=== PATIENT | female | born 1955 | race Caucasian/White ===

== ENCOUNTER → 2016-11-16 | Outpatient (CLI) | payer BC ==
[~2016-11-16] MED LIST: ACET-1138 PO; CALC1CHW57 PO; HYDR25TA4 PO; MULT-506 PO; ONDA8TAB6 PO; ULT50X PO; XRL10 PO
[2016-11-16 13:02] LABS: BASO % 0.7 %; BASO ABS # 0.04 K/uL (0-0.2); COMPLETE YES; EOS % 6.8 %; HEMATOCRIT 41.2 % (37-47); LYMPH % 22.1 %; MEAN CELL VOLUME 86.9 fL (80-100); MEAN CORPUSCULAR HEMOGLOBIN 29.1 pg (25-34); MEAN CORPUSCULAR HGB CONC 33.5 g/dl (32-36); MEAN PLATELET VOLUME 9.5 fL (7.4-10.4); MONO % 8.3 %; NEUT % 62.1 %; PLATELET COUNT 323 K/uL (130-400); RED BLOOD COUNT 4.74 M/uL (4.2-5.4); WHITE BLOOD COUNT 5.42 K/uL (4.8-10.8)
[2016-11-16 14:28] LABS: ALT/SGPT 16 U/L (12-78); AST/SGOT 11 U/L (15-37); BLOOD UREA NITROGEN 11 mg/dl (7-18); BUN/CREATININE RATIO 15.5 (10-20); CARBON DIOXIDE 27 mmol/L (21-32); CHLORIDE 104 mmol/L (98-107); GLUCOSE 87 mg/dl (70-99); POTASSIUM 3.7 mmol/L (3.5-5.1); SODIUM 141 mmol/L (136-145)
[2016-11-16 14:32] LABS: ALKALINE PHOSPHATASE 84 U/L (45-117); CHOLESTEROL 158 mg/dl (0-200); CHOLESTEROL/HDL RATIO 2.7; HDL CHOLESTEROL 58 mg/dl; LDL CHOLESTEROL CALCULATED 87 mg/dl; TRIGLYCERIDES 67 mg/dl (0-150); VERY LOW DENSITY LIPOPROT CALC 13 mg/dl
== END | disposition home or self-care (01) ==
LOC: C.LABMFLN 11:17
PROVIDERS: ATTEND Family Medicine
DX: I10 Essential (primary) hypertension (principal); E78.5 Hyperlipidemia, unspecified

== ENCOUNTER → 2017-05-17 | Outpatient (CLI) | payer BC ==
[~2017-05-17] MED LIST changes: +ACET-24 PO; +NCY50 PO
[2017-05-17 13:54] LABS: THYROID STIMULATING HORMONE 2.41 uIu/ml (0.300-4.500)
== END | disposition home or self-care (01) ==
LOC: C.LABMFLN 08:21
PROVIDERS: ATTEND Family Medicine
DX: I10 Essential (primary) hypertension (principal)

== ENCOUNTER → 2017-05-30 | Outpatient (CLI) | payer BC ==
--- NOTE | 2017-05-31 13:48 | MAMMOGRAPHY REPORT ---
BILATERAL DIGITAL SCREENING MAMMOGRAM TOMOSYNTHESIS WITH CAD: 05/30/2017 CLINICAL HISTORY: Routine screening. Patient has no complaints. TECHNIQUE: Breast tomosynthesis in addition to standard 2D mammography was performed. Current study was also evaluated with a Computer Aided Detection (CAD) system. COMPARISON: Comparison is made to exams dated: 05/25/2016 mammogram, 05/20/2015 mammogram, 05/14/2014 m ammogram - [facility], 04/12/2013 mammogram, 04/05/2011 mammogram, and 02/26/2010 mammo gram. BREAST COMPOSITION: There are scattered areas of fibroglandular density in both breasts. FINDINGS: There are a few benign-appearing round and punctate microcalcifications, stable in each callie ast. No new suspicious mass, architectural distortion or cluster of microcalcifications is seen. IMPRESSION: ACR BI-RADS CATEGORY 1: NEGATIVE There is no mammographic evidence of malignancy. A 1 year screening mammogram is recommended. The pa tient will receive written notification of the results. Approximately 10% of breast cancers are not detected with mammography. A negative mammographic report should not delay biopsy if a clinically suggestive mass is present. Georgie Ly M.D. ay/:05/30/2017 17:18:51 Outreach Specialist: Anila BARNETT(Devonte)(Liv)(BD), [facility] letter sent: Normal 1/2 BI-RADS Code: ACR BI-RADS Category 1: Negative
== END | disposition home or self-care (01) ==
LOC: C.MAMM 07:39
PROVIDERS: ATTEND Family Medicine
DX: Z12.31 Encounter for screening mammogram for malignant neoplasm of breast (principal)

== ENCOUNTER 2017-07-05 06:15 | Inpatient (IN) | payer BC ==
[2017-05-30 13:41] VITALS: BMI 29.0
[2017-05-30 14:01] LABS: BASO % 0.5 %; BASO ABS # 0.03 K/uL (0-0.2); COMPLETE YES; EOS % 4.2 %; HEMATOCRIT 41.3 % (37-47); IG% 0.2 %; LYMPH % 24.5 %; LYMPH ABS # 1.62 K/uL (1.2-3.4); MEAN CELL VOLUME 89.6 fL (80-100); MEAN CORPUSCULAR HEMOGLOBIN 29.9 pg (25-34); MEAN CORPUSCULAR HGB CONC 33.4 g/dl (32-36); MEAN PLATELET VOLUME 9.6 fL (7.4-10.4); MONO % 5.5 %; NEUT % 65.1 %; PLATELET COUNT 285 K/uL (130-400); RED BLOOD COUNT 4.61 M/uL (4.2-5.4)
--- NOTE | 2017-05-30 14:13 | PAT Medication Instructions ---
Service Date May 30, 2017. Current Home Medication List Calcium W/ Vitamins D & K (Calcium + D), 1 TAB PO QAM Hydrochlorothiazide (Hctz), 25 MG PO QAM Multivitamin (Multivitamin), 1 TAB PO QAM Medication Instructions For Your Scheduled Surgery - Hold the following medications the morning of surgery: Calcium W/ Vitamins D & K (Calcium + D), 1 TAB PO QAM Hydrochlorothiazide (Hctz), 25 MG PO QAM Multivitamin (Multivitamin), 1 TAB PO QAM nothing to eat or drink after midnight If you have any questions please call us at [phone] or [phone] or [phone]
[2017-05-30 14:16] LABS: ESTIMATED AVERAGE GLUCOSE 105 mg/dl; HA1C FLAG Normal (Normal); PARTIAL THROMBOPLASTIN RATIO 1.1; PROTHROMBIN TIME (PATIENT) 10.6 SECONDS (9.0-12.0)
[2017-05-30 14:19] LABS: CREATININE 0.67 mg/dl (0.60-1.20); POTASSIUM 3.6 mmol/L (3.5-5.1)
[2017-05-30 14:23] LABS: URINE APPEARANCE CLEAR (CLEAR); URINE BILIRUBIN NEG (NEG); URINE COLOR YELLOW; URINE EPITHELIAL CELL AUTO >30 /lpf (0-5); URINE NITRITE NEG (NEG); URINE PH 6.5 (4.5-7.5); URINE SPECIFIC GRAVITY 1.013 (1.000-1.030); UROBILINOGEN NEG (NEG); ZZUR CULT IF INDIC CLEAN CATCH YES
[2017-05-30 14:34] LABS: MANUAL MICROSCOPIC REQUIRED? NO; REVIEW REQ? YES
--- NOTE | 2017-05-30 14:36 | DIAGNOSTIC IMAGING REPORT ---
CHEST 2 VIEWS ROUTINE CLINICAL HISTORY: Preoperative evaluation. COMPARISON STUDY: Chest radiograph May 03, 2016. FINDINGS: Lung volumes are normal. Lungs are clear. No pneumothorax or pleural effusion is present. Pulmonary vascularity is normal. Cardiomediastinal silhouette is normal. There are cholecystectomy clips. The appearance of the chest is unchanged. IMPRESSION: No acute cardiopulmonary findings. Electronically signed by: Logan Miller M.D. 05/30/2017 2:34 PM Dictated Date/Time: 05/30/2017 2:34 PM
--- NOTE | 2017-07-04 18:50 | HISTORY & PHYSICAL EXAMINATION ---
DATE OF ADMISSION: 07/05/2017 CHIEF COMPLAINT: Chronic left knee pain. HISTORY OF PRESENT ILLNESS: This is a 62-year-old female patient of Dr. Blue. She is complaining of chronic left knee pain, longstanding, now progressively getting worse. The patient has failed conservative treatments including acetaminophen. The patient has been diagnosed with end-stage osteoarthritis per clinical and radiographic exams. The patient has increased pain with weightbearing activities and her pain does interfere with her activities of daily living. PAST MEDICAL HISTORY: Hypertension, irregular heartbeat, anxiety, abnormal bleeding, rheumatoid arthritis, osteoarthritis, and hiatal hernia. SOCIAL HISTORY: Nonsmoker, nondrinker. PAST SURGICAL HISTORY: Right total knee, bilateral carpal tunnels, left thumb hysterectomy and cholecystectomy. FAMILY HISTORY: Noncontributory. REVIEW OF SYSTEMS: The patient complains of chronic left knee pain. Otherwise, denies any shortness of breath, chest pain, nausea, vomiting or any other joint complaints. MEDICATIONS: Include: 1. Hydrochlorothiazide 25 mg daily. 2. Centrum 3500 units/18 mg chewable tablet daily. 3. Caltrate 600 plus D daily. 4. Nucynta 50 mg as needed. ALLERGIES: INCLUDE ASPIRIN, ANTI-INFLAMMATORIES, AND QUINAPRIL. PHYSICAL EXAMINATION: GENERAL: Well-developed, well-nourished 62-year-old female in no acute distress. She is alert and oriented x3 and pleasant. HEENT: Normocephalic, atraumatic. Extraocular muscles are intact. Pupils are equal, reactive to light. HEART: Regular rate and rhythm. No murmurs appreciated. LUNGS: Clear. ABDOMEN: Soft, nontender. Bowel sounds are present. EXTREMITIES: Left knee reveals a limited range of motion of 0-100 degrees. She has medial joint line tenderness. She has a mild effusion, crepitation with passive range of motion. NEUROLOGIC: neurovascular she is intact in her left lower extremity. DIAGNOSES: Left knee end-stage osteoarthritis, hypertension, history of palpitations, anxiety, abnormal bruising, rheumatoid arthritis, osteoarthritis, and hiatal hernia. PLAN: The patient was advised for diagnosis, indications, risks, benefits, postop course have all been reviewed. The patient wished to proceed with a left total knee arthroplasty. Necessary consent forms and preoperative testing clearances will be obtained.
[~2017-07-05] VITALS: Ht 154.9 cm; Wt 70.9 kg
[2017-07-05] VITALS (9 sets, daily range): BP systolic 106–150; BP diastolic 64–76; PULSE 52–81; TEMP 36.4–37; O2SAT 96–100; Ht 154.9 cm; Wt 70.9 kg
[~2017-07-05 06:15] MED LIST changes: -ACET-1138 PO; -ACET-24 PO; +ACETAMINOPHEN 500 MG TAB PO SCH; +CEFAZOLIN 1000MG/55 ML D5W 55 ML IV SCH; +DEXAMETHASONE 4 MG TAB PO SCH; +FAMOTIDINE 20 MG TAB PO SCH; +GABAPENTIN 300 MG CAP PO SCH; +LACTATED RINGER'S 1000ML 1,000 ML IV SCH; +LACTATED RINGER'S 1000ML IV SCH; +METOCLOPRAMIDE HCL 10 MG TAB PO SCH; -NCY50 PO; -ONDA8TAB6 PO; +ROPIVACAINE 5MG/ML 30 ML 150 MG, BUPIVACAINE/EPINEPHR 0.5% MPF 30 ML, DEXAMETHASONE INJ... INFIL SCH; -ULT50X PO; -XRL10 PO
[2017-07-05] MEDS ORDERED: BUPIVACAINE 0.5 % 5 MG/1 ML PF 10ML VIAL ONE (06:21)
[2017-07-05] MEDS ORDERED: ROPIVACAINE 0.5% 5 MG/ML 30 ML VIAL ONE (06:22)
[2017-07-05] MEDS: TRANEXAMIC ACID INJ 1,000 MG in SODIUM CHLORIDE 0.9% 100ML 100 ML IV SCH ×2 (06:30→08:10)
[2017-07-05] MEDS ORDERED: LIDOCAINE HCL 2% 2 ML VIAL (20MG/ML) ONE ×3 (07:09→09:44)
[2017-07-05] MEDS ORDERED: PROPOFOL IV EMULSION 10 MG/ML 20 ML VIAL IV ONE ×2 (07:09→08:03)
[2017-07-05] MEDS ORDERED: MIDAZOLAM HCL 1 MG/ML 2ML VIAL ONE (07:10)
--- NOTE | 2017-07-05 07:11 | History & Physical Bridge Note ---
H&P Re-Evaluation Bridge Note: I have examined the patient, reviewed the History & Physical and in the interval since the performance of the History & Physical I have noted the following changes of clinical significance: No changes noted
[2017-07-05] MEDS ORDERED: BUPIVACAINE/EPINEPHRINE 0.5% MPF 1:200,000 30 ML VIAL ONE (07:12)
[2017-07-05] MEDS ORDERED: EpINEphrine HCL INJ 1 MG/ML 5ML SYRINGE ONE (07:13)
[2017-07-05] MEDS ORDERED: ORTHO JOINT ANESTHETIC ONE (07:13)
[2017-07-05] MEDS ORDERED: BACITRACIN 50000 UNIT VIAL ONE (07:14)
[2017-07-05] MEDS ORDERED: POVIDONE-IODINE OP SOLN 30 ML BTL ONE (07:14)
[2017-07-05] MEDS ORDERED: SCOPOLAMINE 1.5 MG TDSY TD ONE (07:43)
[2017-07-05] MEDS ORDERED: GLYCOPYRROLATE INJ 0.2 MG/ML VIAL ONE ×2 (08:03→09:43)
[2017-07-05] MEDS ORDERED: FENTANYL CITRATE INJ 50 MCG/1 ML 2 ML VIAL ONE (08:03)
[2017-07-05] MEDS ORDERED: DEXAMETHASONE SOD INJ 4 MG/ML VIAL ONE (08:03)
[2017-07-05] MEDS ORDERED: NEOSTIGMINE METHYLSULFATE 5 MG/5 ML SYR ONE (08:03)
[2017-07-05] MEDS ORDERED: ONDANSETRON INJ 2 MG/ML 2 ML VIAL ONE ×2 (08:03→09:43)
[2017-07-05] MEDS ORDERED: SODIUM CHLORIDE 0.9% INJ 10 ML VIAL ONE (08:04)
[2017-07-05] MEDS ORDERED: LARYING-O-JET KIT (LTA) ONE ×2 (08:04)
[2017-07-05] MEDS ORDERED: HYDROmorphone INJ 2 MG/ML SYR/VIAL ONE (08:04)
[2017-07-05] MEDS ORDERED: EpHEDrine SULFATE INJ 50 MG/ML AMP IV PRN (08:15)
[2017-07-05] MEDS ORDERED: HYDROmorphone INJ 2 MG/ML SYR/VIAL IV PRN (08:15)
[2017-07-05] MEDS ORDERED: ATROPINE SULFATE 0.1 MG/ML 5ML SYR IV PRN (08:15)
[2017-07-05] MEDS ORDERED: PHENYLEPHRINE 100MCG/ML 5ML SYR IV PRN (08:15)
[2017-07-05] MEDS ORDERED: ONDANSETRON INJ 2 MG/ML 2 ML VIAL IV PRN (08:15)
[2017-07-05] MEDS ORDERED: EpHEDrine SULFATE 50MG/5ML SYR ONE (09:44)
--- NOTE | 2017-07-05 10:19 | [facility] Post Operative Brief Note ---
Immediate Operative Summary Operative Date Jul 05, 2017. Pre-Operative Diagnosis Left knee end stage osteoarthritis Post-Operative Diagnosis Left knee end stage osteoarthritis Procedure(s) Performed Left total knee arthroplasty Surgeon Dr. Blue Clinical Pharmacist Surgeon(s) Wing Estrada PA-C Estimated Blood Loss 5 cc Findings tricompartment oa varus ,grade 4 medial and lateral Specimens A: Left knee bone and tissue Drains 2 hemovac Anesthesia general and adductor block orthomix no toradol Complication(s) None Disposition Recovery Room / PACU
[2017-07-05] MEDS ORDERED: ALUMINUM/MAGNESIUM/SIMETH (MAALOX MAX) 30 ML UDC PO PRN (10:45)
[2017-07-05] MEDS ORDERED: MAGNESIUM HYDROXIDE SUSP 30 ML UDC PO PRN (10:45)
[2017-07-05] MEDS ORDERED: BISACODYL 10 MG SUPP PR PRN (10:45)
--- NOTE | 2017-07-05 11:14 | DIAGNOSTIC IMAGING REPORT ---
TWO VIEWS LEFT KNEE CLINICAL HISTORY: Postoperative examination. FINDINGS: AP and crosstable lateral portable views of the left knee are obtained. A left knee arthroplasty is in near anatomic alignment. There has been undersurface remodeling of the patella. No acute fracture is seen. There are expected postoperative changes around the knee including skin clips, a surgical drain, soft tissue edema, and subcutaneous gas. IMPRESSION: Expected postoperative changes status post left knee arthroplasty. No acute fracture is seen. Electronically signed by: Pavan Snell M.D. 07/05/2017 11:13 AM Dictated Date/Time: 07/05/2017 11:13 AM
--- NOTE | 2017-07-05 11:51 | Anesthesiology Progress Note ---
Anesthesia Post Op Note Date & Time Jul 05, 2017 at 11:51 Vital Signs Pain Intensity: 0 Vital Signs Past 12 Hours Date Time Temp Pulse Resp B/P (MAP) Pulse Ox O2 Delivery O2 Flow Rate FiO2 07/05/17 11:46 61 15 96 07/05/17 11:46 61 15 07/05/17 11:45 114/58 07/05/17 11:41 68 16 07/05/17 11:41 65 16 96 07/05/17 11:40 120/62 07/05/17 11:36 73 14 96 07/05/17 11:36 74 14 07/05/17 11:35 36.6 07/05/17 11:35 117/58 07/05/17 11:31 63 12 96 07/05/17 11:31 64 12 07/05/17 11:30 117/54 07/05/17 11:26 61 17 07/05/17 11:26 62 17 95 07/05/17 11:25 108/60 07/05/17 11:24 61 12 07/05/17 11:24 61 12 97 07/05/17 11:20 119/59 07/05/17 11:19 76 16 99 07/05/17 11:19 74 16 07/05/17 11:15 129/59 07/05/17 11:14 63 13 07/05/17 11:14 63 13 99 07/05/17 11:13 74 26 07/05/17 11:13 75 26 96 07/05/17 11:10 131/59 07/05/17 11:08 64 16 96 07/05/17 11:08 64 16 07/05/17 11:05 126/63 07/05/17 11:03 78 13 07/05/17 11:03 77 13 99 07/05/17 11:01 142/68 07/05/17 10:58 80 12 07/05/17 10:58 36.7 85 14 141/68 99 Oxymask 10 07/05/17 10:58 79 12 99 07/05/17 07:08 36.6 62 20 150/74 Notes Mental Status: alert / awake / arousable, participated in evaluation Pt Amnestic to Procedure: Yes Nausea / Vomiting: adequately controlled Pain: adequately controlled Airway Patency, RR, SpO2: stable & adequate BP & HR: stable & adequate Hydration State: stable & adequate Anesthetic Complications: no major complications apparent
[2017-07-05] MEDS ORDERED: ROCURONIUM BROMIDE 10 MG/ML 5 ML VIAL IV ONE (12:11)
[2017-07-05] MEDS: D5W AND 1/2NSS + 20MEQ KCL 1,000 ML IV SCH ×2 (13:59→21:22)
[2017-07-05] MEDS: ACETAMINOPHEN 500 MG TAB PO SCH ×2 (15:00→21:22)
[2017-07-05] MEDS: CEFAZOLIN IV 2,000 MG in DEXTROSE 5% 50ML 50 ML IV SCH ×2 (15:00→21:22)
[2017-07-05] MEDS: ONDANSETRON INJ 2 MG/ML 2 ML VIAL IV PRN (16:32)
[2017-07-05] MEDS: FERROUS GLUCONATE 324 MG TAB PO SCH (18:25)
[2017-07-05] MEDS: SENNA 8.6 MG TAB PO SCH (20:37)
[2017-07-05] MEDS: TAPENTADOL HCL 50 MG TAB PO PRN (20:37)
[2017-07-05] MEDS: DOCUSATE SODIUM 100 MG CAP PO SCH (20:37)
--- NOTE | 2017-07-05 22:58 | OPERATIVE REPORT ---
DATE OF OPERATION: 07/05/2017 INDICATION FOR PROCEDURE: The patient is a 62-year-old female who presents with chronic left knee pain. She has had successful right knee replacement in the past. Left knee arthritis is significant with tricompartmental DJD, [id number] in the medial compartment. She has a varus knee. PREOPERATIVE DIAGNOSIS: End-stage osteoarthritis of the left knee. POSTOPERATIVE DIAGNOSIS: End-stage osteoarthritis of the left knee. PROCEDURE: Left total knee arthroplasty. SURGEON: Dr. Blue. COUNSEL: LIZANDRO Ugarte. ANESTHESIA: General, adductor nerve block and Orthomix without Toradol due to ASPIRIN ALLERGY. OPERATIVE PROCEDURE: The patient was taken to the operating room, anesthetized under anesthesia as dictated. She was placed supine on the operating room table. Pneumatic tourniquet was placed on the left upper thigh. Left lower extremity was prepped and draped in sterile fashion. Exam demonstrates she had significant pseudolaxity medially despite the varus knee. She had full extension and flexion to about 120 degrees. She had a varus knee. Clearly [id number] crepitation. The left lower extremity was sterilely prepped and draped with ChloraPrep in usual sterile fashion. Leg was elevated, exsanguinated with Esmarch bandage, pneumatic tourniquet was raised to 300 mmHg. Anterior incision was made across the left knee. Skin incised sharply. Subcutaneous flaps were elevated. Incision was made through medial retinaculum and extended up into the mid third of the quadriceps tendon and extended down to the medial tibial tubercle. Intraarticular findings demonstrated severe tricompartmental DJD. She had grade 4 delamination on the lateral femoral condyle. She had grade 4 DJD medial compartment with a large medial osteophyte. She had significant DJD of patellofemoral joint as well. I used the [employer] 2.0 total knee arthroplasty system using [employer] MRI templating. Femur was sized for a 5, tibia for a 3. The knee was exposed by sizing the infrapatellar fat pad, releasing lateral synovial bands, excising the meniscal remnants, cruciate ligaments and some of the fat pad over the anterior femur for placement of the component in that area. The femur was exposed. The custom femoral cutting block was pinned in position and distal femoral cut was made. Then, the 5-in-1 cutting block was used to make the anterior, posterior and chamfer cuts. Then, the knee was extended and a subperiosteal peel lateral release was performed around the patella. The patellar width was measured and the width was reproduced using a 32 mm patella dome component. The excess lateral facet was beveled off to prevent any impingement and drill holes were made for the component. The tibia was subluxed and then the custom tibial cutting block was pinned in position. The proximal tibial cut was made. Then, we assessed ligaments balance in extension and flexion, ligaments were balanced in extension and flexion. The tibia was then re-exposed. The trial 3 tibial component was externally rotated in line with the tibial tubercle, pinned in position and then the punch for the stem was used. Then, the 5 femoral trial was inserted, centered and notch cutting device was used. A collet was placed and a 15 trial insert gave balanced ligaments through full range of motion and the patella tracked centrally. The trials were removed and the anesthetic cocktail was injected. The knee was copiously irrigated with pulsatile lavage, antibiotic solution and bacitracin. The final components were cemented with Simplex G cement. The final components were the 5 Oxinium posterior stabilized [employer] Journey left femoral component, the 3 tibial baseplate, the 15 mm high flex poly posterior stabilized insert and a 32 patella. While cement cured, Betadine soak was used per protocol. Then, the knee was copiously irrigated with antibiotic solution and bacitracin. Then, 2 drains were brought out laterally and connected to Hemovac. Then, the quadriceps tendon and medial retinaculum were closed with interrupted [id number] #1 Vicryl sutures. The knee was taken through full range of motion and repair was secure. Subcutaneous tissue was closed with interrupted 2-0 Vicryl and the skin was closed with russel and sterile dressings were applied. LIZANDRO Ugarte, was my facilities assistant. He functioned as facilities assistant through the entire procedure, assisted in patient positioning, prepping, draping, leg positioning, soft tissue retraction, instrument management, and performed the fascial, subcutaneous and skin closure, and will participate in postoperative care of the patient. I attest to the content of the Intraoperative Record and any orders documented therein. Any exception s are noted below.
[2017-07-06 03:04] VITALS: BP_SYST 91; BP_SYST 99; BP_DIAS 56; BP_DIAS 61; PULSE 51; TEMP 36.6; O2SAT 99
[2017-07-06] MEDS: ACETAMINOPHEN 500 MG TAB PO SCH ×3 (05:40→21:07)
[2017-07-06] MEDS: TAPENTADOL HCL 50 MG TAB PO PRN ×3 (05:54→16:20)
[2017-07-06 06:28] LABS: HEMATOCRIT 35.5 % (37-47); MEAN CELL VOLUME 88.8 fL (80-100); MEAN CORPUSCULAR HEMOGLOBIN 30.3 pg (25-34); MEAN CORPUSCULAR HGB CONC 34.1 g/dl (32-36); MEAN PLATELET VOLUME 9.4 fL (7.4-10.4); PLATELET COUNT 269 K/uL (130-400)
[2017-07-06 07:03] LABS: BUN/CREATININE RATIO 12.4 (10-20); CALCIUM 8.3 mg/dl (8.5-10.1); CREATININE 0.72 mg/dl (0.60-1.20); POTASSIUM 3.7 mmol/L (3.5-5.1)
[2017-07-06 07:13] VITALS: BP 95/60; PULSE 55; TEMP 36.7; O2SAT 99
[2017-07-06] MEDS: D5W AND 1/2NSS + 20MEQ KCL 1,000 ML IV SCH (07:40)
[2017-07-06] MEDS: RIVAROXABAN 10 MG TAB PO SCH (07:46)
--- NOTE | 2017-07-06 08:15 | Anesthesiology Progress Note ---
Anesthesia Post Op Note Date & Time Jul 06, 2017 at 08:14 Vital Signs Pain Intensity: 5.0 Vital Signs Past 12 Hours Date Time Temp Pulse Resp B/P (MAP) Pulse Ox O2 Delivery O2 Flow Rate FiO2 07/06/17 07:13 36.7 55 16 95/60 (72) 99 Room Air 07/06/17 03:04 36.6 51 16 99/61 (74) 99 Room Air 91/56 (68) 07/05/17 23:08 36.5 52 16 111/73 (86) 98 Room Air Notes Mental Status: alert / awake / arousable, participated in evaluation Pt Amnestic to Procedure: Yes Nausea / Vomiting: improving with treatment (c/o nausea and vomitting postop. feels better today) Pain: adequately controlled Airway Patency, RR, SpO2: stable & adequate BP & HR: stable & adequate Hydration State: stable & adequate Anesthetic Complications: no major complications apparent
[2017-07-06] MEDS: FERROUS GLUCONATE 324 MG TAB PO SCH ×3 (09:14→17:57)
[2017-07-06] MEDS: DOCUSATE SODIUM 100 MG CAP PO SCH ×2 (09:14→21:06)
[2017-07-06] MEDS: MULTIVITAMIN TAB PO SCH (09:15)
[2017-07-06] MEDS: HYDROCHLOROTHIAZIDE 25 MG TAB PO SCH (09:15)
[2017-07-06] MEDS: PANTOprazole SOD 40 MG TAB PO SCH (09:16)
[2017-07-06] MEDS: ONDANSETRON INJ 2 MG/ML 2 ML VIAL IV PRN (09:17)
--- NOTE | 2017-07-06 10:10 | Orthopedic Progress Note ---
Orthopedic Progress Note Date of Service Jul 06, 2017. Subjective Post OP Day: 1 Reports: feeling well, pain controlled w PO medications, Denies: complaints, chest pain, SOB, nausea / vomiting, light headedness, calf pain Additional Notes: Had some N/V yesterday post op, resolved overnight and is stable this AM, had a pain pill this AM with no issues. Objective calves soft nontender, N/V intact, capillary refill less than 2 sec., dressing C /D/I, A&O x3, toes mobile Date Time Temp Pulse Resp B/P (MAP) Pulse Ox O2 Delivery O2 Flow Rate FiO2 07/06/17 07:13 36.7 55 16 95/60 (72) 99 Room Air 07/06/17 03:04 36.6 51 16 99/61 (74) 99 Room Air 91/56 (68) 07/05/17 23:08 36.5 52 16 111/73 (86) 98 Room Air 07/05/17 19:30 Room Air 07/05/17 18:45 36.5 60 18 143/76 (98) 99 Room Air 07/05/17 16:00 Room Air 07/05/17 16:00 58 100 Nasal Cannula 2.0 07/05/17 15:04 36.4 68 18 118/75 (89) 100 Nasal Cannula 2.0 07/05/17 14:00 62 16 110/69 (83) 100 Nasal Cannula 2.0 07/05/17 12:57 61 16 109/68 (82) 98 Nasal Cannula 2.0 07/05/17 12:30 81 18 127/72 (90) 98 Nasal Cannula 2.0 07/05/17 12:00 98 Nasal Cannula 2.0 07/05/17 12:00 Nasal Cannula 2.0 07/05/17 12:00 37.0 65 18 106/64 (78) 96 Nasal Cannula 2.0 07/05/17 11:46 61 15 96 07/05/17 11:46 61 15 07/05/17 11:45 114/58 07/05/17 11:41 68 16 07/05/17 11:41 65 16 96 07/05/17 11:40 120/62 07/05/17 11:36 73 14 96 07/05/17 11:36 74 14 07/05/17 11:35 36.6 07/05/17 11:35 117/58 07/05/17 11:31 63 12 96 07/05/17 11:31 64 12 07/05/17 11:30 117/54 07/05/17 11:26 61 17 07/05/17 11:26 62 17 95 07/05/17 11:25 108/60 07/05/17 11:24 61 12 07/05/17 11:24 61 12 97 07/05/17 11:20 119/59 07/05/17 11:19 76 16 99 07/05/17 11:19 74 16 07/05/17 11:15 129/59 07/05/17 11:14 63 13 07/05/17 11:14 63 13 99 07/05/17 11:13 74 26 07/05/17 11:13 75 26 96 07/05/17 11:10 131/59 07/05/17 11:08 64 16 96 07/05/17 11:08 64 16 07/05/17 11:05 126/63 07/05/17 11:03 78 13 07/05/17 11:03 77 13 99 07/05/17 11:01 142/68 07/05/17 10:58 80 12 07/05/17 10:58 36.7 85 14 141/68 99 Oxymask 10 07/05/17 10:58 79 12 99 Laboratory Results 24 Hours: Test 07/06/17 05:49 Hematocrit 35.5 % Hemoglobin 12.1 g/dL Assessment & Plan Assessment: POD #1, Left TKA Plan: PT/ OT DVT proph- Xarelto D/C planning- OPPT Inhouse Planning Pain Management: PO Tylenol, other (Nucynta) DVT Prophylaxis: TEDs, SCDs, Xarelto Discharge Planning Discharge Planning: home with oppt Pain Management: PO Tylenol, other (Nucynta) DVT Prophylaxis: TEDs, Xarelto Therapy: Physical Therapy, Occupational Therapy
[2017-07-06 10:59] VITALS: BP 113/71; PULSE 56; TEMP 36.5; O2SAT 100
[2017-07-06] MEDS ORDERED: NURSING VERBAL MED ORDER ONE (12:15)
[2017-07-06] MEDS ORDERED: MoRPHine SULFATE 2 MG/ML CARP IV PRN (13:00)
[2017-07-06] MEDS: KETOROLAC TROMETHAMINE 30 MG/ML VIAL IV. PRN ×2 (13:22→19:46)
[2017-07-06 13:44] VITALS: BP 152/75
[2017-07-06 15:30] VITALS: BP 106/64; PULSE 64; TEMP 36.8; O2SAT 98
[2017-07-06] MEDS: SENNA 8.6 MG TAB PO SCH (21:06)
[2017-07-06 22:57] VITALS: BP 109/73; PULSE 65; TEMP 36.7; O2SAT 98
[2017-07-07] MEDS: ACETAMINOPHEN 500 MG TAB PO SCH (05:56)
[2017-07-07 05:59] VITALS: BP 106/68; PULSE 61; TEMP 36.9; O2SAT 97
[2017-07-07] MEDS: FERROUS GLUCONATE 324 MG TAB PO SCH ×2 (08:02→12:56)
[2017-07-07] MEDS: RIVAROXABAN 10 MG TAB PO SCH (08:02)
[2017-07-07] MEDS: MULTIVITAMIN TAB PO SCH (08:05)
[2017-07-07] MEDS: DOCUSATE SODIUM 100 MG CAP PO SCH (08:05)
[2017-07-07] MEDS: HYDROCHLOROTHIAZIDE 25 MG TAB PO SCH (08:06)
[2017-07-07] MEDS: PANTOprazole SOD 40 MG TAB PO SCH (08:08)
[2017-07-07] MEDS: TAPENTADOL HCL 50 MG TAB PO PRN (08:11)
[2017-07-07 08:15] VITALS: BP 120/79
--- NOTE | 2017-07-07 08:34 | Orthopedic Progress Note ---
Orthopedic Progress Note Date of Service Jul 07, 2017. Subjective Post OP Day: 2 Reports: feeling well, pain controlled w PO medications, Denies: complaints, chest pain, SOB, nausea / vomiting, light headedness, calf pain Objective calves soft nontender, N/V intact, capillary refill less than 2 sec., dressing C /D/I, A&O x3, toes mobile Silverlon in tact. Date Time Temp Pulse Resp B/P (MAP) Pulse Ox O2 Delivery O2 Flow Rate FiO2 07/07/17 08:15 120/79 (93) 07/07/17 05:59 36.9 61 16 106/68 (81) 97 Room Air 07/06/17 22:57 36.7 65 16 109/73 (85) 98 Room Air 07/06/17 19:42 Room Air 07/06/17 15:30 36.8 64 18 106/64 (78) 98 Room Air 07/06/17 10:59 36.5 56 16 113/71 (85) 100 Room Air Assessment & Plan Assessment: POD #2, Left TKA Plan: PT/ OT DVT proph- Xarelto D/C planning- OPPT home today Inhouse Planning Pain Management: PO Tylenol, other (Nucynta) DVT Prophylaxis: TEDs, SCDs, Xarelto Discharge Planning Discharge Planning: home with oppt Pain Management: PO Tylenol, other (Nucynta) DVT Prophylaxis: TEDs, Xarelto Therapy: Physical Therapy, Occupational Therapy
[2017-07-07] MEDS ORDERED: XRL10 PO (08:36)
[2017-07-07] MEDS ORDERED: NCY50 PO (08:36)
[2017-07-07] MEDS ORDERED: ACET-24 PO (08:36)
--- NOTE | 2017-07-07 08:37 | Discharge Instructions ---
Discharge Instructions Date of Service Jul 07, 2017. Admission Reason for Admission: Left Knee Degenerative Joint Disease Discharge Discharge Diagnosis / Problem: Left TKA Discharge Goals Goal(s): Improve function Activity Recommendations Activity Limitations: as noted below . Instructions / Follow-Up Instructions / Follow-Up ACTIVITY RECOMMENDATIONS: SELF CARE INSTRUCTIONS AFTER TOTAL KNEE REPLACEMENT A. You may need to continue a physical therapy program after discharge from the hospital. There are several options available to you. Your doctor will assist you in selecting the best one for you. 1. An out-patient facility 2 to 3 times a week for therapy or home therapy. 2. Continue working on all exercises taught to you in the hospital. Your goals should be to increase bending of your knee to 90 degrees and beyond and to fully straighten your knee. B. You may progress at your own pace from walking with a walker or crutches to a cane; then to no assistive devices. C. Make walking a part of your daily routine. Be up as much as comfortable with rest periods throughout the day. Rest with leg elevation is very important. Use the ice wrap frequently for the first 3-4 weeks. D. There are no restrictions on activities. You may ride in a car, shop, participate in moving consultant and all social activities. E. Wear the long elastic stockings (ENRICO hose) 20 hours a day for 2 weeks after surgery. They can be removed several times a day for laundering and for a bath. F. You may shower, no tub baths until cleared by your doctor. SPECIAL CARE INSTRUCTIONS: VERY IMPORTANT TO READ AND REVIEW A. There are a few signs you need to watch for after you are home. Call [facility] if you notice any of the followin. Increased severe knee pain. Some pain is expected especially when you exercise. 2. Increased swelling in your leg or knee; pain or swelling of the calf muscle in either lower leg. 3. Any fluid drainage from the incision. 4. Shortness of breath or chest pain. B. Please call [facility] at if you have any concerns or questions about your operation or recovery. The doctor or his nurse will return your call promptly. C. You must take antibiotics before dental work, bladder, bowel or other surgery. Your doctor will provide you with a permanent care to carry describing this precaution. IMPORTANT: * REMEMBER TO TAKE ASPIRIN, 81 MG, TWICE DAILY FOR 4 WEEKS UNLESS OTHERWISE DIRECTED. THIS IS YOUR BLOOD THINNER. * HIGH RISK PATIENTS MAY BE PRESCRIBED A STRONGER BLOOD THINNER. THIS WILL BE PROVIDED AT DISCHARGE. * CALL IF INCREASED PAIN, REDNESS, DRAINAGE OR FEVER GREATER THAT 101. * WEAR ENRICO HOSE 20 HOURS PER DAY FOR 2 WEEKS. * YOU MAY HAVE A LARGE BAND-AID LIKE DRESSING (SILVERON). THIS WILL REMAIN ON YOUR INCISION FOR 7 DAYS, THEN CAN BE REMOVED. IF INCISION IS LEAKING THROUGH DRESSING, CALL THE OFFICE . FOLLOW UP VISIT: If appointment is not already scheduled: Please call [facility] to make a follow-up appointment for 2 weeks after your surgery at . Current Hospital Diet Patient's current hospital diet: Regular Diet Discharge Diet Recommended Diet: Regular Diet Procedures Procedures Performed: Left total knee arthroplasty Pending Studies Studies pending at discharge: no Laboratory Results Hemoglobin A1c Test 05/30/17 13:19 Range/Units Estimated Average Glucose 105 mg/dl Hemoglobin A1c 5.3 4.5-5.6 % Medical Emergencies . Who to Call and When: Medical Emergencies: If at any time you feel your situation is an emergency, please call 911 immediately. . Non-Emergent Contact Non-Emergency issues call your: Primary Care Provider . "Provider Documentation" section prepared by Nabeel Sotomayor. . VTE Core Measure Inpt VTE Proph given/why not?: Other Anticoagulation (Xarelto), T.E.DKacey Stockings, SCD's [place] Drug Monitoring Program Search Results: patient reviewed within database, no issues identified
[2017-07-07] MEDS: ONDANSETRON INJ 2 MG/ML 2 ML VIAL IV PRN (10:37)
[2017-07-07 11:14] VITALS: BP 120/79; PULSE 61; TEMP 36.9; O2SAT 97
[2017-07-07] MEDS ORDERED: ONDA8TAB6 PO (11:19)
--- NOTE | 2017-07-11 20:48 | DISCHARGE SUMMARY ---
DISCHARGE DIAGNOSIS: Degenerative joint disease, left knee. SECONDARY DIAGNOSES: Hypertension, irregular heartbeat, anxiety, abnormal bleeding, rheumatoid arthritis, osteoarthritis, and hiatal hernia. CONSULTS: None. COMPLICATIONS: None. PROCEDURE: Left total knee arthroplasty performed by Dr. Blue on 07/05/2017. BRIEF HISTORY: As dictated in history and physical. HOSPITAL SUMMARY: The patient was admitted on the above-noted date and had the above-noted surgery performed which she tolerated well. On her first postoperative day, she was feeling well and pain was controlled. She had had some nausea and vomiting the previous day, postoperatively, which resolved overnight. Calves were soft and nontender, neurovascularly intact. Dressings clean, dry and intact. Toes were mobile. Vital signs were stable and she was afebrile. Hemoglobin was 12.1 and she was started on physical therapy protocol and continued on DVT prophylaxis and pain management. By her second postoperative day, she was feeling well and pain was controlled. Dressings were intact. Toes were mobile. Neurovascularly intact. Vital signs are stable. She was afebrile. She was progressing well with physical therapy and it was felt she could be discharged to home. For further review, please see chart. LABORATORY AND X-RAY DATA: As per chart. DISCHARGE INSTRUCTIONS: The patient was discharged to home in satisfactory condition on 07/07/2017. DIET: Regular. ACTIVITY: Weightbearing as tolerated, left lower extremity. Follow TK instruction sheets and special care instructions as noted. FOLLOWUP: Follow up with Dr. Blue in 2 weeks. The patient to call for appointment if one has not been made for you. DISCHARGE MEDICATIONS: Acetaminophen 1000 mg p.o. q. 8 hours for 21 days, Zofran 8 mg p.o. q. 8 hours p.r.n. nausea, rivaroxaban 10 mg p.o. q. 24 hours for 12 days, tapentadol 50-100 mg p.o. q. 4 hours p.r.n. pain. Resume home meds as listed.
== END 2017-07-07 13:45 | disposition home or self-care (01) | DRG 470 ==
LOC: C.ACU 06:15 → C.3E 07:03 → ENRESERV 11:33
PROVIDERS: ADMIT Orthopaedic Surgery Sports Medicine; ATTEND Orthopaedic Surgery Sports Medicine
PROC: 0SRD0J9 Replacement of Left Knee Joint with Synthetic Substitute, Cemented, Open Approach (ICD-10-PCS; principal; 2017-07-05 08:15)
DX: M17.12 Unilateral primary osteoarthritis, left knee (principal); I10 Essential (primary) hypertension; F41.9 Anxiety disorder, unspecified; M06.9 Rheumatoid arthritis, unspecified; Z96.651 Presence of right artificial knee joint

== ENCOUNTER 2022-05-20 09:22 | Observation (INO) ==
--- NOTE | 2022-04-18 12:10 | Anesthesiology Consultation ---
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 No current COVID-19 related symptoms. Travel screen negative. Surgeon arranging preop COVID testing. Awaiting results. - PCP office visit (04/11/22): "Patient plans for left ankle repair by Dr. Denney on 04/05/22.. Her chronic problems are well controlled with current medication regimen.. Preoperative diagnostic testing reviewed without any abnormalities.. She is an acceptable surgical risk - per Revised Cardiac Risk Index she is a class I risk, indicating 3.9% 30 day risk of , SC, or cardiac arrest" - S/P Left TKA 07/05/2017: done under GA with grade 1 view with MAC #3. ETT #7x1 attempt/atraumatic.(Pt requested GA due to bruising easily per anesthesia consult) - Check BMP AM DOS (not done with preop testing) Chart Review Chart Review: Acceptable Risk for Surgery (pending BMP AM DOS) and Patient NOT seen in Pre Admission Testing History Surgery Operation Date: 05/06/22 07:15 Proposed Procedures p Left Ankle Posterior Tibial Tendon Reconstruction, Felxor Digitorum Longus Tendon Transfer - Darci Denney DO s Calcaneal Osteotomy - Darci Denney DO s Lateral Column Lengthening with Autograft, Percutaneous Tendon Achilles Lengthening, - Darci Denney DO s Left Iliac Crest Autograft [place] - Darci Denney DO Height/Weight Height: 5 ft 1 in Weight: 74.843 kg Allergies Allergy/AdvReac Type Severity Reaction Status Date / Time quinapril Allergy Severe TONGUE Verified 04/18/22 10:49 SWELLED aspirin Allergy Intermediate HIVES Verified 04/18/22 10:49 NSAIDS (Non-Steroidal Allergy Intermediate Hives Verified 04/18/22 10:49 Anti-Inflamma Medications Home Medications Medication Instructions Recorded Confirmed Last Taken multivitamin 1 tab PO QAM 05/05/21 04/18/22 Unknown ascorbic acid (vitamin C) 1,000 mg 1 g PO QAM 09/29/21 04/18/22 Unknown tablet hydrochlorothiazide 25 mg tablet 25 mg PO QAM 09/29/21 04/18/22 Unknown zinc gluconate 50 mg tablet 50 mg PO QAM 09/29/21 04/18/22 Unknown amino acids 1 cap PO QAM 04/18/22 04/18/22 Unknown Past Medical History Medical History (Updated 04/18/22 @ 12:07 by Melba Miller) Benign paroxysmal positional vertigo Hx Diaphragmatic hernia Hypertension Low Back Pain Osteoarthritis Past Family History Family History Grandmother Breast cancer Father Heart disease Diabetes Hypertension Mother Hypertension Stroke Past Surgical History Surgical History (Updated 04/18/22 @ 12:05 by Melba Miller) H/O colonoscopy 2018 H/O laparoscopy 1991 H/O thumb surgery thumb joint replacement (left) History of anesthesia reaction N/V S/P carpal tunnel release R/L S/P cholecystectomy S/P hysterectomy 2006 S/P knee replacement R/L Social History Smoking Status: Never smoker Do You Dip or Chew Tobacco: No Hx Alcohol Use: No Hx Substance Use: No substance use type: does not use Lab Results Anesthesia Preop Results Results Anesthesia Widget: WBC 5.70 K/uL (4.8-10.8) 03/16/22 Hgb 13.6 g/dL (12.0-16.0) 03/16/22 Hct 41.1 % (37-47) 03/16/22 Plt 344 K/uL (130-400) 03/16/22 Testing Electrocardiogram Date: 04/11/22 SR with marked sinus arrhythmia at 75bpm. Chest X-Ray Date: 08/27/21 Findings: + NAD Compatible with moderately sized hiatal hernia.
--- NOTE | 2022-05-17 08:56 | History & Physical Report ---
Date of Service May 17, 2022 Assessment & Plan (1) Pes planus of left foot: Plan: Schedule a left foot posterior tibial tendon reconstruction with flexor digitorum longus tendon transfer, medializing calcaneal osteotomy, lateral column lengthening with autograft, left iliac crest bone graft harvest, percutaneous tendo Achilles lengthening for 05/20/2022. All potential risks, benefits, complications, alternatives, and rehab have been discussed with the patient and she wishes to proceed. Plan for aspirin 81 mg twice daily x4 weeks for postoperative DVT prophylaxis. (2) Posterior tibial tendon dysfunction, left: (3) Contracture of left Achilles tendon: (4) Sinus tarsi syndrome of left ankle: History of Present Illness Chief Complaint: Left foot pain and deformity Primary Care Provider: Yenifer Merida MD This is a patient who has had worsening left foot pain and deformity. She was treated conservatively for posterior tibialis tendinitis as well as pes planus deformity. However, she has failed all conservative management. An MRI noted chronic changes within the posterior tibialis tendon as well as a pes planus deformity. She is now being set up for surgical treatment. Allergies Allergy/AdvReac Type Severity Reaction Status Date / Time quinapril Allergy Severe TONGUE Verified 05/13/22 10:18 SWELLED aspirin Allergy Intermediate HIVES Verified 05/13/22 10:18 NSAIDS (Non-Steroidal Allergy Intermediate Hives Verified 05/13/22 10:18 Anti-Inflamma Home Medications Medication Instructions Recorded Confirmed Type multivitamin 1 tab PO QAM 05/05/21 05/13/22 History ascorbic acid (vitamin C) 1,000 mg 1 g PO QAM 09/29/21 05/13/22 History tablet zinc gluconate 50 mg tablet 50 mg PO QAM 09/29/21 05/13/22 History amino acids 1 cap PO QAM 04/18/22 05/13/22 History hydrochlorothiazide 25 mg tablet 25 mg PO QAM #90 tabs 05/04/22 05/13/22 Rx Past Med/Surg History Medical History Benign paroxysmal positional vertigo Hx Diaphragmatic hernia Hypertension Low Back Pain Osteoarthritis Surgical History H/O colonoscopy 2018 H/O laparoscopy 1991 H/O thumb surgery thumb joint replacement (left) History of anesthesia reaction N/V S/P carpal tunnel release R/L S/P cholecystectomy S/P hysterectomy 2006 S/P knee replacement R/L Family History Grandmother Breast cancer Father Heart disease Diabetes Hypertension Mother Hypertension Stroke Social History Smoking Status: Never smoker Second Hand Exposure: No; Hx Alcohol Use: No Hx Substance Use: No Preferred Language: Syriac Communication Ability: Effective Customs Consultant Required: No Beliefs That Will Affect Care: None marital status: Current Living Situation: Spouse Current Living Situation Comment: mother in law Feels Safe at Home: Yes Dental Care, Regularly: Yes Physical Activity Frequency: 5-6 Times per Week Seatbelt Use: always Assistive Devices: Glasses Physical Exam Constitutional: well developed and well nourished; no acute distress ENMT: external ear and nose normal, oropharynx normal Neck: trachea midline Respiratory: normal respiratory effort, lungs clear to auscultation Cardiovascular: Rate/Rhythm: regular rate and regular rhythm Gastrointestinal (Abdomen): normal bowel sounds, soft, nontender, no hepatosplenomegaly Musculoskeletal: Ankle: + deformity (Left pes planovalgus deformity), + limited ROM of ankle (Left dorsiflexion) and + joint line tenderness (ankle) (Left posterior tibial tendon, left sinus Tarsi); no skin erythema and no ecchymosis Skin: no rashes, warm and dry Trauma: no evidence of skin trauma Neurologic: normal touch/pain/proprioception Psychiatric: A+Ox3, euthymic affect Speech: normal rate/rhythm/volume of speech Lymphatic: no cervical or axillary lymphadenopathy
[~2022-05-20 09:22] MED LIST changes: -ACETAMINOPHEN 500 MG TAB PO SCH; +BUPIVACAINE 0.25% 30 ML VIAL ONE; -CALC1CHW57 PO; -CEFAZOLIN 1000MG/55 ML D5W 55 ML IV SCH; -DEXAMETHASONE 4 MG TAB PO SCH; +EPINEPHrine INJ 1 MG/ML AMP ONE; -FAMOTIDINE 20 MG TAB PO SCH; -GABAPENTIN 300 MG CAP PO SCH; -HYDR25TA4 PO; -LACTATED RINGER'S 1000ML 1,000 ML IV SCH; -LACTATED RINGER'S 1000ML IV SCH; +LR 15ML/HR IV SCH; -METOCLOPRAMIDE HCL 10 MG TAB PO SCH; -MULT-506 PO; -ROPIVACAINE 5MG/ML 30 ML 150 MG, BUPIVACAINE/EPINEPHR 0.5% MPF 30 ML, DEXAMETHASONE INJ... INFIL SCH
--- NOTE | 2022-05-20 10:22 | History & Physical Bridge Note ---
Date of Service May 20, 2022 History & Physical Bridge Note I have examined the patient, reviewed the History & Physical and in the interval since the performance of the History & Physical I have noted the following changes of clinical significance: no changes noted
[2022-05-20] MEDS ORDERED: ceFAZolin 2000MG 2,000 MG/15 ML SYR IV ONE (10:26)
[2022-05-20] MEDS ORDERED: ceFAZolin 2,000 MG/15 ML IV PUSH IV ONE (10:28)
[2022-05-20 10:32] LABS: BUN Creatinine Ratio 17.6 (10-20); Calcium 9.1 mg/dl (8.5-10.1); Creatinine Clr Calc Pharmacy 76.4 ml/min; Est GFR (African American) 106.4 ml/min; Est GFR (Non-African American) 91.8 ml/min; Potassium 3.6 mmol/L (3.5-5.1)
[2022-05-20] MEDS ORDERED: HYDROmorphone INJ 2 MG/ML SYR/VIAL IV PRN (11:22)
[2022-05-20] MEDS ORDERED: ONDANSETRON INJ 2 MG/ML 2 ML VIAL IV PRN ×3 (11:22→18:53)
[2022-05-20] MEDS ORDERED: ePHEDrine sulfate 50 MG/ML AMP IV PRN ×2 (11:22→15:30)
[2022-05-20] MEDS ORDERED: ATROPINE SULFATE 0.1 MG/ML 10ML SYR IV PRN ×2 (11:22→15:30)
[2022-05-20] MEDS ORDERED: fentaNYL citrate 100 MCG/2 ML VIAL ONE ×2 (13:23→15:09)
[2022-05-20] MEDS ORDERED: LIDOCAINE 2% MPF LOCAL 5 ML VIAL INFIL ONE (13:24)
[2022-05-20] MEDS ORDERED: MIDAZOLAM HCL 1 MG/ML 2ML VIAL ONE (13:24)
[2022-05-20] MEDS ORDERED: ONDANSETRON INJ 2 MG/ML 2 ML VIAL ONE ×2 (13:24→14:35)
[2022-05-20] MEDS ORDERED: PROPOFOL IV EMULSION 10 MG/ML 20 ML VIAL IV ONE (13:24)
[2022-05-20] MEDS ORDERED: DEXAMETHASONE SOD INJ 4 MG/ML VIAL ONE ×3 (13:24→14:37)
[2022-05-20] MEDS ORDERED: BUPIVACAINE/EPINEPHRINE 0.25% 1:200,000 30 ML VIAL ONE (14:14)
[2022-05-20] MEDS ORDERED: THROMBIN FOR SOLN 20000 UNIT KIT ONE (14:15)
[2022-05-20] MEDS ORDERED: ceFAZolin 330 MG/ML 1 GM VIAL ONE (14:15)
[2022-05-20] MEDS ORDERED: GELATIN SPONGE SZ 100 ONE (14:15)
[2022-05-20] MEDS ORDERED: MoRPHine SULFATE PF 1 MG/ML 10 ML AMP/VIAL ONE (14:37)
[2022-05-20] MEDS ORDERED: ePHEDrine sulfate 50 MG/ML SYR ONE (14:49)
[2022-05-20] MEDS ORDERED: PHENYLEPHRINE 100MCG/ML 5ML SYR ONE (14:49)
[2022-05-20] MEDS ORDERED: fentaNYL citrate 100 MCG/2 ML VIAL IV PRN (15:30)
[2022-05-20] MEDS ORDERED: MoRPHine SULFATE PF 1 MG/ML 10 ML AMP/VIAL INJ ONE (15:45)
--- NOTE | 2022-05-20 16:53 | Post Operative Brief Note ---
Immediate Post Op Note v1 Date of Surgery May 20, 2022 Pre & Post Diagnosis Operation Date: 05/20/22 10:55 Pre-Op Diagnosis: (1) Pes planus of left foot. (2) Posterior tibial tendon dysfunction, left. (3) Contracture of left Achilles tendon. (4) Sinus tarsi syndrome of left ankle. Post-Op Diagnosis: (1) Pes planus of left foot. (2) Posterior tibial tendon dysfunction, left. (3) Contracture of left Achilles tendon. (4) Sinus tarsi syndrome of left ankle. I identified the patient and participated in the time-out.: Yes Procedure Operation Date: 05/20/22 10:55 Actual Procedures p Left Ankle Posterior Tibial Tendon Reconstruction with Flexor Digitorum Longus Tendon Transfer, Medializing calcaneal Osteotomy, Lateral Column Lengthening of calcaneus with Autograft, Percutaneous Tendon Achilles Lengthening, Left Iliac Crest Autograft [place]. - Darci Denney DO Surgeon Darci Denney DO Product Design Specialist Estuardo Matthews PA-C Estimated Blood Loss 25 Findings Consistent with Post-Op Diagnosis Anesthesia Type General Regional Complications none Disposition Accompanied Patient To Recovery: No
[2022-05-20] MEDS: fentaNYL citrate 100 MCG/2 ML VIAL IV PRN ×2 (17:38→17:43)
[2022-05-20] MEDS ORDERED: MAGNESIUM HYDROXIDE SUSP 30 ML UDC PO PRN (18:53)
[2022-05-20] MEDS ORDERED: ALUMINUM/MAGNESIUM SUSP 30 ML UDC PO PRN (18:53)
[2022-05-20] MEDS ORDERED: METOCLOPRAMIDE HCL INJ 5 MG/ML 2 ML VIAL IV PRN (18:53)
[2022-05-20] MEDS ORDERED: NO NSAIDS SCH (18:53)
[2022-05-20] MEDS: SODIUM CHLORIDE 0.9% 1000ML 1,000 ML IV SCH (18:53)
[2022-05-20] MEDS ORDERED: NALOXONE HCL 0.4 MG/1 ML VIAL/CARP IV PRN (18:53)
[2022-05-20] MEDS ORDERED: bisacodyL 10 MG SUPP PR PRN (18:53)
[2022-05-20] MEDS ORDERED: diphenhydrAMINE Capsule 25 MG CAP PO PRN (18:53)
--- NOTE | 2022-05-20 20:24 | Operative Report (OR) ---
DATE OF PROCEDURE: 05/20/2022 PREOPERATIVE DIAGNOSES: 1. Left posterior tibial tendon dysfunction grade II. 2. Painful pes planovalgus. 3. Achilles tendon contracture. 4. Sinus tarsus syndrome. POSTOPERATIVE DIAGNOSES: 1. Left posterior tibial tendon dysfunction grade II. 2. Painful pes planovalgus. 3. Achilles tendon contracture. 4. Sinus tarsus syndrome. PROCEDURE: 1. Left posterior tibial tendon reconstruction with flexor digitorum longus tendon transfer. 2. Medializing calcaneal osteotomy with screw fixation. 3. Lateral column lengthening of the calcaneus with application of autograft. 4. Left iliac crest bone graft harvest. 5. Percutaneous tendo-Achilles lengthening. SURGEON: Darci Denney DO. INJECTION MOLD TOOLING TECHNICIAN: Estuardo Matthews PA-C. Due to the complex nature of the procedure, the entire surgery was performed with the web marketing assistant of Estuardo Matthews PA-C. The sugar laboratory assistant, under direct smith pervision, was involved in the actual performance of all aspects of the surgical procedure including hemostasis, tissue retraction and incision, instrument management, patient positioning, and wound melanie sure. ANESTHESIA: General, regional. SPECIMENS: None. DRAINS: None. COMPLICATIONS: None. BLOOD LOSS: 25 mL PERTINENT HISTORY: This is a 67-year-old female who has had chronic progressive and worsening left p osterior tibial tendon dysfunction and pain. She had associated deformity. She was treated conserva tively with anti-inflammatories, physical therapy, shoewear modification, activity modification, phys ician-directed home exercises, formal physical therapy with modalities, topical and oral NSAIDs as we ll as steroid injections. The patient failed all measures had an MRI, which noted chronic changes wi thin the posterior tibial tendon with attenuation, partial tearing and a pes planovalgus deformity. She was then scheduled for surgery as indicated. All potential risks, benefits, complications, rehab potential for incomplete relief of symptoms, need for surgery, DVT, PE, , persistent pain, swelling, scarring, weakness, neurovascular injury, wo und complications, hardware failure, nonunion, malunion, bone fracture were discussed with the patien t. The patient decided to proceed with the procedure as indicated. DESCRIPTION OF PROCEDURE: The patient was taken to the operative suite. The consent was reviewed and surgical site was identified. The patient had undergone a general, regional anesthetic and then abel sferred to the Operating Room table. Tourniquet was placed high in the left thigh over cast padding. left iliac crest and left lower extremity were then sterilely prepped and draped in usual fashion. Th e left lower extremity was then elevated and exsanguinated with Esmarch bandage, tourniquet inflated to 350 mmHg. Next, left foot was held in dorsiflexion. 11 blade scalpel was used to perform a three p art percutaneous tendo Achilles lengthening and then the small stab incisions were then closed with a skin stapler. Next, a 15 blade scalpel was used to make an incision in oblique fashion on the latera l aspect of the left calcaneus. The incision was deepened to subcutaneous tissue. Meticulous hemostas is with electrocautery. Full thickness flaps were developed. Next, periosteum was elevated with small periosteal elevator. Hohmann retractors were placed and a sagittal saw was used to perform the osteo nae in the posterior aspect of the calcaneus. Tuberosity was then shifted medially and then stabiliz ed with a guide pin from the 7.3 mm cannulated screw set under fluoroscopic control. Next, a short th read 7.3 mm cannulated screw of appropriate length was then placed over the guide pin and then used t o compress the osteotomy under fluoroscopic control. Next, the guide pin was removed. The wound was i rrigated with sterile Normal Saline and the dermis was closed using buried 3-0 Vicryl sutures and the skin was closed using 4-0 Nylon. Next, a 15 blade scalpel incision was made over the anterior proces s of the calcaneus and lateral calcaneus, the incision deepened through subcutaneous tissue, meticulo us hemostasis with electrocautery. The extensor digitorum brevis was identified, incised and then luz vated both superiorly and inferiorly. Peroneal tendon sheath was elevated and Hohmann retractors were placed in the sinus tarsi and then the inferior aspect of the calcaneus. A sagittal saw was used to make an osteotomy approximately 1.5 cm proximal to the calcaneal cuboid joint. Smooth osteotomes were placed into the osteotomies to open the osteotomy site and then a cervical lamina core winder machine operator was place d in the opening. The opening of appropriate width was then measured and the cervical lamina core winder machine operator was then removed from the osteotomy and a moist lap was placed over the foot. Next, after injection of the left iliac crest with approximately 15 cc of 0.5% Marcaine with Epinephrine a 15 blade scalpel incision was made over the iliac crest approximately 1 cm proximal to the ASIS. This was deepened to subcutaneous tissue with electrocautery down to the level of the fascia. Fascia was incised in line with the skin incision and then the iliac crest was clearly visualized, soft tissue and fascia was el evated medially and laterally. Small Byrne retractors were placed in the inner and outer table of t he iliac crest. It was irrigated with sterile Normal Saline. Appropriate length of bone wedge was hayder sured and marked with electrocautery and then a sagittal saw was used to resect the appropriate width trapezoidal tricortical graft from the pelvis. Next, after irrigation and suction the graft was then placed on the back table and a small amount of cancellous graft was excised from the iliac crest. Th e wound was then finally irrigated with Sterile Normal Saline. The defect in the iliac crest was then packed with Gelfoam and Thrombin. This was then closed with the fascia overlying the iliac crest wit h #1 Vicryl sutures. Next, this was injected with 1 cc of Duramorph and 5 cc of 0.5% Marcaine with Ep inephrine. The dermis was closed using buried interrupted 2-0 Vicryl sutures and the skin was closed using skin russel. Approximately 5 more cc of 0.5% Marcaine with Epinephrine was injected. No oozing or bleeding was encountered and a sterile compressive dry dressing was applied overwrapped with an O pSite. Next, the graft was then placed in the lateral osteotomy of the foot to lengthen the lateral c olumn using a cervical lamina core winder machine operator to span the osteotomy. After the graft was tamped in place wit h a bone tamp and mallet the cervical lamina core winder machine operator was removed. Next, the adjacent bone graft obta ined from the iliac crest was then packed around the tricortical graft and then the graft was then st abilized with a single fully threaded 4.0 mm small fragment screw placed under lag technique compress ing the graft in place. Next, the 2-0 Vicryl suture was used to close the extensor digitorum brevis a nd the dermis was closed using buried interrupted 3-0 Vicryl. Skin was closed using 4-0 Nylon sutures . Next, a 15 blade scalpel was used to make a long curvilinear incision along the medial aspect of th e hind foot overlying the posterior tibial tendon. The incision was deepened to subcutaneous tissue. Meticulous hemostasis achieved with electrocautery. The incision was extended to the first metatarsal head. Next, after incision of the lacinate ligament the flexor retinaculum was encountered. This was incised in line with skin incision overlying the posterior tibial tendon. The posterior tibial tendo n was clearly visualized. Tenotomy scissors were then used to complete the release of the flexor reti naculum and the posterior tibial tendon was then elevated sharply with combination of electrocautery and 15 blade scalpel from its insertion on the navicular. The damaged portion of the tendon distally was then resected and then a whip stitch was placed with 0 Ethibond suture in the distal aspect of th e posterior tibial tendon. Next, dissection was continued in the mid foot in the interval between the first metatarsal and the abductor hallucis. A Weitlaner retractor was placed in the wound and then a fter careful dissection the master knot of Saroj was released and the flexor digitorum longus and fle xor hallucis longus were clearly visualized distally. Tenodesis was performed with interrupted 0 Ethi castro suture with toes held in neutral alignment in line with the metatarsals. Next, a whip stitch was placed in the distal aspect of the FDL tendon and then the FDL was then released distally to allow i t to be retracted proximally posterior to the medial malleolus after a small cut was made in the FDL sheath posterior to the medial malleolus. After the tendon was withdrawn posteriorly, the soft tissue s were elevated from the medial navicular and a 4.5 mm drill hole was made in the medial navicular. A Crum suture passer was used to transfer the tendon from the plantar to the dorsal aspect of the n avicular. It was then sutured back down to itself using a sharp tendon passer and a Pulvertaft weave technique with #2 fiber wire suture. Several passes were made and then this was then incorporated int o the posterior tibial tendon. Next, free needle was used to tie the ends of the posterior tibial ten don and FDL tendon into the adjacent tendons. Sutures were then tied and cut. The wound was irrigated with Sterile Normal Saline. Deep drain was placed, a #10 English single Hemovac drain medially and th en the flexor sheath was closed using interrupted 2-0 Vicryl sutures. The interval between the first metatarsal and the abductors were closed using interrupted 2-0 Vicryl sutures. The dermis was closed using buried interrupted 3-0 Vicryl suture and skin closed with 4-0 Nylon. A sterile compressive Choloe rt Felix plaster splint was applied and wrapped with an Karan wrap with the foot held in slight equinus and inversion. The tourniquet was released, patient awakened and taken to recovery in stable conditi on. Job ID: [id number]
--- NOTE | 2022-05-20 20:28 | Anesthesiology Progress Note ---
Date of Service May 20, 2022 Anesthesia Post Procedure Vital Signs Vital Signs: Temp Pulse Pulse Resp BP Pulse Ox O2 Del Method 05/20/22 19:51 36.3 C L 68 16 148/85 H 88 L Room Air 05/20/22 19:20 36.5 C 67 14 149/85 H 99 Room Air 05/20/22 19:20 36.5 C 67 18 149/85 H 99 Nasal Cannula 05/20/22 19:20 Nasal Cannula 05/20/22 18:50 36.3 C L 72 16 154/83 H 100 Nasal Cannula 05/20/22 18:30 36.3 C L 68 14 164/79 H 99 Nasal Cannula 05/20/22 18:20 76 13 148/80 H 93 Room Air 05/20/22 18:10 85 18 170/83 H 100 Room Air 05/20/22 18:00 91 H 30 H 176/89 H 98 Room Air 05/20/22 17:50 91 H 22 153/88 H 99 Oxymask 05/20/22 17:40 82 15 159/88 H 98 Oxymask 05/20/22 17:20 91 H 21 150/92 H 97 Oxymask 05/20/22 17:30 89 19 151/87 H 99 Oxymask 05/20/22 17:12 36.3 C L 94 H 18 122/75 94 Oxymask 05/20/22 10:01 36.8 C 63 18 152/70 H 97 Room Air O2 Flow Rate 05/20/22 19:51 05/20/22 19:20 05/20/22 19:20 2 05/20/22 19:20 2 05/20/22 18:50 2 05/20/22 18:30 2 05/20/22 18:20 05/20/22 18:10 05/20/22 18:00 05/20/22 17:50 3 05/20/22 17:40 6 05/20/22 17:20 6 05/20/22 17:30 6 05/20/22 17:12 6 05/20/22 10:01 Pain Intensity Left Ankle: Pain Intensity: 2 Right Leg: Pain Intensity: 5 Transfer of Care Handoff Completed per policy Notes Mental Status: alert / awake / arousable and participated in evaluation Patient Amnestic to Procedure: Yes Nausea / Vomiting: adequately controlled Pain: adequately controlled Airway Patency, RR, SpO2: stable & adequate BP & HR: stable & adequate Hydration State: stable & adequate Anesthetic Complications: no major complications apparent and Pt Satisfied with anesthetic care
[2022-05-20] MEDS ORDERED: SENNA 8.6 MG TAB PO SCH (21:00)
[2022-05-20] MEDS: ceFAZolin 2000MG 2,000 MG/15 ML SYR IV SCH (22:28)
[2022-05-20] MEDS: APIXABAN 2.5 MG TAB PO SCH (22:28)
[2022-05-20] MEDS: DOCUSATE SODIUM 100 MG CAP PO SCH (22:28)
[2022-05-20] MEDS: ACETAMINOPHEN 500 MG TAB PO SCH (22:29)
[2022-05-20] MEDS: oxyCODONE HCL IR 5 MG TAB (IMMEDIATE RELEASE) PO PRN (22:29)
[2022-05-21] MEDS: HYDROmorphone INJ 0.5 MG/0.5 ML SYR IV PRN ×2 (02:06→05:57)
[2022-05-21] MEDS: SODIUM CHLORIDE 0.9% 1000ML 1,000 ML IV SCH (04:41)
[2022-05-21] MEDS: ACETAMINOPHEN 500 MG TAB PO SCH (05:03)
[2022-05-21] MEDS: oxyCODONE HCL IR 5 MG TAB (IMMEDIATE RELEASE) PO PRN ×2 (05:04→14:10)
[2022-05-21] MEDS: ceFAZolin 2000MG 2,000 MG/15 ML SYR IV SCH (06:31)
--- NOTE | 2022-05-21 07:07 | Fluoroscopy Report ---
INTRAOPERATIVE RADIOGRAPHS CLINICAL HISTORY: Left ankle posterior tibial tendon reconstruction. Fluoroscopy time: 8 seconds. FINDINGS: 2 spot fluoroscopic views of the left ankle are presented. No prior studies are available f or comparison at the time of dictation. There is evidence of calcaneal osteotomy. A cortical lag scre w transfixes the osteotomy site. An additional cortical screw transfixes the lateral tarsal bones, li po involving the calcaneonavicular articulation. The orthopedic hardware appears intact. There is a small plantar heel spur. Overlying soft tissue edema is noted. Skin clips are seen posteriorly. IMPRESSION: Intraoperative images of the left ankle as above. Electronically signed by: Pavan Snell M.D. 05/21/2022 7:06 AM
[2022-05-21 07:16] LABS: Hemoglobin 12.5 g/dl (12.0-16.0); Mean Corpuscular Hemoglobin 30.3 pg (25.0-34.0); Mean Corpuscular Hgb Conc 33.8 g/dL (32.0-36.0); Mean Corpuscular Volume 89.6 fL (80.0-100.0); Mean Platelet Volume 9.7 fL (9.4-12.3); Platelet Count 303 K/uL (130-400); RDW Coefficient of Variation 12.5 % (11.5-14.5); RDW Standard Deviation 41.2 fL (36.4-46.3); Red Blood Count 4.13 M/uL (3.93-5.22); White Blood Count 13.81 K/ul (4.8-10.8)
[2022-05-21 07:36] LABS: BUN Creatinine Ratio 15.7 (10-20); Calcium 8.4 mg/dl (8.5-10.1); Creatinine Clr Calc Pharmacy 80.3 ml/min; Est GFR (African American) 105.4 ml/min; Est GFR (Non-African American) 90.9 ml/min; Potassium 3.8 mmol/L (3.5-5.1)
[2022-05-21] MEDS ORDERED: MULTIVITAMIN TAB PO SCH (09:00)
[2022-05-21] MEDS ORDERED: NON-FORMULARY MEDICATION (Amino Acids Capsule) PO SCH (09:00)
[2022-05-21] MEDS ORDERED: ZINC SULFATE 220 MG CAPSULE PO SCH (09:00)
[2022-05-21] MEDS ORDERED: ASCORBIC ACID 500 MG TAB PO SCH (09:00)
[2022-05-21] MEDS ORDERED: hydroCHLOROthiazide 25 MG TAB PO SCH (09:00)
--- NOTE | 2022-05-21 09:48 | Orthopedic Progress Note ---
Date of Service May 21, 2022 Assessment & Plan (1) Posterior tibial tendon dysfunction, left: Plan: Postop day #1 PROCEDURE: 1. Left posterior tibial tendon reconstruction with flexor digitorum longus tendon transfer. 2. Medializing calcaneal osteotomy with screw fixation. 3. Lateral column lengthening of the calcaneus with application of autograft. 4. Left iliac crest bone graft harvest. 5. Percutaneous tendo-Achilles lengthening. -Pain management as written -DVT prophylaxis: SCDs, aspirin 81 mg twice daily -PT/OT: Nonweightbearing left lower extremity -AM labs: Hemoglobin at 12.6 from 13.5 preop. She has mild leukocytosis likely reactive due to surgical stress. She is asymptomatic. -Discharge planning: Plan on discharge home when stable. Admission and Anticipated Discharge Date Admission Date: May 20, 2022 Subjective Patient is postop day #1 left posterior tibial tendon reconstruction. She is having a lot of nausea this morning. Improving after taking some medication. Her pain is currently controlled. She was having a lot of issues with pain overnight. No other complaints. Denies chest pain, shortness of breath, vomiting, headache/dizziness. Review of Systems Review of Systems: All systems reviewed & are unremarkable except as noted in Subjective Physical Exam Physical Exam: Dressing is clean, dry, intact. Toes are mobile with decreased sensation. Cap refill less than 3 seconds. She is concerned that the splint may be too tight however at this time looks okay. We will monitor. No calf tenderness Constitutional: WD/WN, vitals as above Results & Data ([facility]) Vital Signs (Past 12 Hours) Vital Signs Temp Pulse Pulse Resp BP BP Pulse Ox 05/21/22 07:55 36.7 C 65 18 109/69 99 05/21/22 05:44 36.6 C 63 16 125/74 97 05/21/22 01:57 36.7 C 82 14 139/76 97 05/20/22 21:54 36.6 C 67 14 141/76 H 100 O2 Del Method O2 Flow Rate 05/21/22 07:55 Room Air 05/21/22 05:44 Room Air 05/21/22 01:57 Room Air 05/20/22 21:54 Nasal Cannula 2 Laboratory Results Lab Results 05/20/22 05/20/22 05/21/22 Range/Units 09:59 10:13 06:55 WBC 13.81 H (4.8-10.8) K/ul RBC 4.13 (3.93-5.22) M/uL Hgb 12.5 (12.0-16.0) g/dl Hct 37.0 (34.1-44.9) % MCV 89.6 (80.0-100.0) fL MCH 30.3 (25.0-34.0) pg MCHC 33.8 (32.0-36.0) g/dL RDW Std Deviation 41.2 (36.4-46.3) fL RDW Coeff of Santosh 12.5 (11.5-14.5) % Plt Count 303 (130-400) K/uL MPV 9.7 (9.4-12.3) fL Sodium 139 (136-145) mmol/L Potassium 3.6 (3.5-5.1) mmol/L Chloride 104 (98-107) mmol/L Carbon Dioxide 29 (21-32) mmol/L Anion Gap 6 (3-11) BUN 12 (6-23) mg/dl Creatinine 0.68 (0.6-1.2) mg/dl Est Cr Clr Drug Dosing 76.4 ml/min Est GFR ( Amer) 106.4 ml/min Est GFR (Non-Af Amer) 91.8 ml/min BUN/Creatinine Ratio 17.6 (10-20) Glucose 88 (70-99(Fasting)) mg/dl Calcium 9.1 (8.5-10.1) mg/dl SARS-CoV-2, RNA, NAAT NEGATIVE (NEGATIVE) 05/21/22 Range/Units 06:55 WBC (4.8-10.8) K/ul RBC (3.93-5.22) M/uL Hgb (12.0-16.0) g/dl Hct (34.1-44.9) % MCV (80.0-100.0) fL MCH (25.0-34.0) pg MCHC (32.0-36.0) g/dL RDW Std Deviation (36.4-46.3) fL RDW Coeff of Santosh (11.5-14.5) % Plt Count (130-400) K/uL MPV (9.4-12.3) fL Sodium 138 (136-145) mmol/L Potassium 3.8 (3.5-5.1) mmol/L Chloride 105 (98-107) mmol/L Carbon Dioxide 25 (21-32) mmol/L Anion Gap 8 (3-11) BUN 11 (6-23) mg/dl Creatinine 0.70 (0.6-1.2) mg/dl Est Cr Clr Drug Dosing 80.3 ml/min Est GFR ( Amer) 105.4 ml/min Est GFR (Non-Af Amer) 90.9 ml/min BUN/Creatinine Ratio 15.7 (10-20) Glucose 122 H (70-99(Fasting)) mg/dl Calcium 8.4 L (8.5-10.1) mg/dl SARS-CoV-2, RNA, NAAT (NEGATIVE)
[2022-05-21] MEDS: APIXABAN 2.5 MG TAB PO SCH (12:45)
[2022-05-21] MEDS: DOCUSATE SODIUM 100 MG CAP PO SCH (12:46)
== END 2022-05-21 14:32 | disposition home or self-care (01) ==
LOC: 3W 09:22 → ASU 09:22 → 3W 19:40